=== PATIENT | female | born 1960 ===

== ENCOUNTER → 2018-06-26 | Day surgery (SDC) | payer OTHER ==
[~2018-06-26] MED LIST: LIDOCAINE 1% INJ-PF (10 MG/ML) 30 ML SDV ONE
--- NOTE | 2018-07-01 12:28 | WOMENS IMAGING REPORT ---
EXAM DESCRIPTION: U/S BREAST BX; LEFT DIG DX MAMMO NO CHG COMPLETED DATE/TIME: 07/01/2018 10:29 am; 06/26/2018 2:00 pm REASON FOR STUDY: LT BREAST BX C50.12; C50.12 LEFT C50.412 MALIG NEOPLASM OF UPPER-OUTER QUADRANT O F LEFT FEMAL COMPARISON: Outside study dated 05/22/2018. TECHNIQUE: The procedure was discussed with the patient and the patient agreed to proceed. The patient was scanned and the area of interest in the 1-2 o'clock position of the left breast was l ocalized. This correlates with the area of concern on prior imaging studies. This area was targeted for ultrasound-guided core biopsy. After sterile skin prep and 10 mL local lidocaine 1% for skin and deep tissue anesthesia, a 14 gauge coaxial core biopsy needle was used to obtain several cores of tissue from the lesion. Under ultraso und guidance, a ribbon clip was placed in the areas sampled. There were no immediate post-procedure complications. MAMMOGRAM: Post-procedure two view mammogram was acquired in the digital mammogram suite. The clip wa s in the expected location. No significant hematoma. Pathology yields a diagnosis of invasive well differentiated ductal carcinoma. Pathology is concordant. LIMITATIONS: None. FINDINGS: Ultrasound guided breast biopsy as described above. POST PROCEDURE MAMMOGRAMS FOR MARKER PLACEMENT: Yes IMPRESSION: ULTRASOUND-GUIDED CORE BIOPSY OF THE LEFT BREAST YIELDS A DIAGNOSIS OF INVASIVE WELL DIF FERENTIATED DUCTAL CARCINOMA. COMMENT: COMMUNICATION: Initial attempts to contact the patient were unsuccessful. Further attempts will be made later in the day. Patient medication list reviewed: Yes- Quality ID# [id number]:Eligible professional attests to documenting i n the medical record they obtained, updated, or reviewed the patient's current medications. TECHNICAL DOCUMENTATION: JOB ID: [id number] [employer]- All Rights Reserved Reading location - IP/workstation name: [email or web address]
--- NOTE | 2018-07-01 12:28 | WOMENS IMAGING REPORT ---
EXAM DESCRIPTION: U/S BREAST BX; LEFT DIG DX MAMMO NO CHG COMPLETED DATE/TIME: 07/01/2018 10:29 am; 06/26/2018 2:00 pm REASON FOR STUDY: LT BREAST BX C50.12; C50.12 LEFT C50.412 MALIG NEOPLASM OF UPPER-OUTER QUADRANT O F LEFT FEMAL COMPARISON: Outside study dated 05/22/2018. TECHNIQUE: The procedure was discussed with the patient and the patient agreed to proceed. The patient was scanned and the area of interest in the 1-2 o'clock position of the left breast was l ocalized. This correlates with the area of concern on prior imaging studies. This area was targeted for ultrasound-guided core biopsy. After sterile skin prep and 10 mL local lidocaine 1% for skin and deep tissue anesthesia, a 14 gauge coaxial core biopsy needle was used to obtain several cores of tissue from the lesion. Under ultraso und guidance, a ribbon clip was placed in the areas sampled. There were no immediate post-procedure complications. MAMMOGRAM: Post-procedure two view mammogram was acquired in the digital mammogram suite. The clip wa s in the expected location. No significant hematoma. Pathology yields a diagnosis of invasive well differentiated ductal carcinoma. Pathology is concordant. LIMITATIONS: None. FINDINGS: Ultrasound guided breast biopsy as described above. POST PROCEDURE MAMMOGRAMS FOR MARKER PLACEMENT: Yes IMPRESSION: ULTRASOUND-GUIDED CORE BIOPSY OF THE LEFT BREAST YIELDS A DIAGNOSIS OF INVASIVE WELL DIF FERENTIATED DUCTAL CARCINOMA. COMMENT: COMMUNICATION: Initial attempts to contact the patient were unsuccessful. Further attempts will be made later in the day. Patient medication list reviewed: Yes- Quality ID# [id number]:Eligible professional attests to documenting i n the medical record they obtained, updated, or reviewed the patient's current medications. TECHNICAL DOCUMENTATION: JOB ID: [id number] [employer]- All Rights Reserved Reading location - IP/workstation name: [facility]-[email or web address]
== END ==
LOC: WI 14:02
PROVIDERS: ATTEND Physician Assistant
DX: C50.412 Malignant neoplasm of upper-outer quadrant of left female breast (principal)
CPT/HCPCS: 88305 ×2; 88342; 19083; J3490